=== PATIENT | female | born 1960 | race Hispanic/Latino ===

== ENCOUNTER 2023-01-19 06:37 | Day surgery (SDC) | payer BC, OTHER ==
[2023-01-19] MEDS: Ringers Lactate 1,000 ML IV ONE ×2 (07:20→08:31)
[2023-01-19] MEDS ORDERED: LIDOCAINE 1% MPF 5 ML VIAL ONE (08:32)
[2023-01-19] MEDS ORDERED: propofoL 200 MG/20 ML VIAL IV ONE ×2 (08:32→08:45)
[2023-01-19 10:45] VITALS: BP 110/52; TEMP 97.5; O2SAT 100
== END 2023-01-19 10:04 | disposition home or self-care (01) ==
LOC: OR 06:37
PROVIDERS: ATTEND Internal Medicine Gastroenterology
PROC: 0DB68ZX Excision of Stomach, Via Natural or Artificial Opening Endoscopic, Diagnostic (ICD-10-PCS; principal; 2023-01-19 08:00)
PROC: 0DJD8ZZ Inspection of Lower Intestinal Tract, Via Natural or Artificial Opening Endoscopic (ICD-10-PCS; 2023-01-19 08:00)
DX: Z12.11 Encounter for screening for malignant neoplasm of colon (principal); Z86.010 Personal history of colon polyps; R93.3 Abnormal findings on diagnostic imaging of other parts of digestive tract; R10.13 Epigastric pain; K21.9 Gastro-esophageal reflux disease without esophagitis; R07.89 Other chest pain; K44.9 Diaphragmatic hernia without obstruction or gangrene; K29.50 Unspecified chronic gastritis without bleeding
CPT/HCPCS: 43239; 88312; 88304; J2704 ×2; J2001; J7120